=== PATIENT | male | born 1960 ===

== ENCOUNTER 2021-04-20 22:00 | Emergency (ER) | payer OTHER ==
[2021-04-20] MEDS ORDERED: fentaNYL 100 MCG/2 ML SDV IVPUSH ONE ×3 (22:08→23:00)
[2021-04-20] MEDS ORDERED: Ondansetron 4 MG/2 ML SDV IVPUSH ONE (22:08)
[2021-04-20] MEDS: Sodium Chloride 0.9% 10 ML Syringe FLUSH PRN ×2 (22:18→22:40)
[2021-04-20] MEDS ORDERED: Midazolam 1 MG/ML 2 ML SDV IVPUSH ONE ×2 (22:35→23:00)
[2021-04-20] MEDS ORDERED: fentaNYL 100 MCG/2 ML SDV ONE (22:59)
[2021-04-20] MEDS ORDERED: Midazolam 1 MG/ML 2 ML SDV ONE (23:02)
--- NOTE | 2021-04-20 23:30 | EDM.PDOC ---
ED HPI GENERAL MEDICAL PROBLEM - General Chief Complaint: Upper Extremity Injury/Pain Stated Complaint: Shoulder pain/dislocation Time Seen by Provider: 04/20/21 22:30 Source of Information: Reports: Patient History Limitations: Reports: No Limitations - History of Present Illness INITIAL COMMENTS - FREE TEXT/NARRATIVE: Patient tripped and fell while working at [employer]. Left shoulder slammed into a cart. Thinks it is dislocated. Denies hitting head or other injuries. 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 [No Known Home Meds] 04/20/21 [History] Past Medical History Musculoskeletal History: Reports: Other (See Below) Other Musculoskeletal History: dupatron contractures - Past Surgical History HEENT Surgical History: Reports: Oral Surgery Musculoskeletal Surgical History: Reports: Carpal Tunnel Social & Family History - Tobacco Use Tobacco Use Status *Q: Never Tobacco User Review of Systems - Review of Systems Review Of Systems: See Below Constitutional: Reports: No Symptoms Eyes: Reports: No Symptoms Ears: Reports: No Symptoms Nose: Reports: No Symptoms Mouth/Throat: Reports: No Symptoms Respiratory: Reports: No Symptoms Cardiovascular: Reports: No Symptoms GI/Abdominal: Reports: No Symptoms Genitourinary: Reports: No Symptoms Musculoskeletal: Reports: Shoulder Pain. Denies: Neck Pain, Arm Pain, Back Pain, Hand Pain, Leg Pain, Foot Pain Skin: Reports: No Symptoms Neurological: Reports: No Symptoms Psychiatric: Reports: No Symptoms ED EXAM, GENERAL - Physical Exam Exam: See Below Exam Limited By: Intoxication General Appearance: Alert, Severe Distress Eye Exam: Bilateral Eye: EOMI, PERRL Ears: Hearing Grossly Normal Nose: No: Nasal Deformity, Nasal Swelling, Nasal Drainage Throat/Mouth: Normal Lips, Normal Voice, No Airway Compromise Head: Atraumatic, Normocephalic Neck: Supple, Non-Tender, Full Range of Motion Respiratory/Chest: No Respiratory Distress, Lungs Clear Cardiovascular: Normal Peripheral Pulses, Regular Rate, Rhythm GI/Abdominal: Soft, Non-Tender (Male) Exam: Deferred Rectal (Males) Exam: Deferred Back Exam: No: CVA Tenderness (L), CVA Tenderness (R), Muscle Spasm, Paraspinal Tenderness, Vertebral Tenderness Extremities: Normal Capillary Refill, Other (left shoulder pain/deformity. NVI distally left arm/hand) Neurological: Alert, Oriented, Normal Cognition Psychiatric: Normal Affect, Normal Mood Skin Exam: Warm, Dry, Intact, Normal Color Course - Vital Signs Last Recorded V/S: Last Vital Signs Temp 36.4 C 04/20/21 22:05 Pulse 75 04/20/21 23:59 Resp 16 04/20/21 23:46 BP 112/64 04/20/21 23:59 Pulse Ox 100 04/20/21 23:46 - Orders/Labs/Meds Orders: Active Orders 24 hr Category Date Time Status Shoulder Comp Lt [CR] Stat Exams 04/20/21 22:04 Taken Shoulder Comp Lt [CR] Stat Exams 04/20/21 23:28 Taken DME for Discharge [COMM] Routine Oth 04/21/21 00:00 Ordered Peripheral IV Insertion Adult [OM.PC] Routine Oth 04/20/21 22:04 Ordered Meds: Medications Discontinued Medications Generic Name Dose Route Start Last Admin Trade Name Karlee PRN Reason Stop Dose Admin Fentanyl 100 mcg 04/20/21 22:08 04/20/21 22:13 Fentanyl 100 Mcg/2 Ml Sdv IVPUSH 04/20/21 22:09 100 mcg ONETIME ONE Administration Fentanyl 100 mcg 04/20/21 22:35 04/20/21 22:39 Fentanyl 100 Mcg/2 Ml Sdv IVPUSH 04/20/21 22:36 100 mcg ONETIME ONE Administration Fentanyl Confirm 04/20/21 22:59 04/20/21 23:15 Fentanyl 100 Mcg/2 Ml Sdv Administered 04/20/21 23:00 Not Given Dose 100 mcg .ROUTE .STK-MED ONE Fentanyl 50 mcg 04/20/21 23:00 04/20/21 23:00 Fentanyl 100 Mcg/2 Ml Sdv IVPUSH 04/20/21 23:01 50 mcg ONETIME ONE Administration Midazolam HCl 4 mg 04/20/21 22:35 04/20/21 22:41 Midazolam 1 Mg/Ml 2 Ml Sdv IVPUSH 04/20/21 22:36 4 mg ONETIME ONE Administration Midazolam HCl Confirm 04/20/21 23:02 04/20/21 23:15 Midazolam 1 Mg/Ml 2 Ml Sdv Administered 04/20/21 23:03 Not Given Dose 2 mg .ROUTE .STK-MED ONE Midazolam HCl 2 mg 04/20/21 23:00 04/20/21 23:00 Midazolam 1 Mg/Ml 2 Ml Sdv IVPUSH 04/20/21 23:01 2 mg ONETIME ONE Administration Ondansetron HCl 4 mg 04/20/21 22:08 04/20/21 22:19 Ondansetron 4 Mg/2 Ml Sdv IVPUSH 04/20/21 22:09 4 mg ONETIME ONE Administration Sodium Chloride 10 ml 04/20/21 22:04 04/20/21 22:40 Sodium Chloride 0.9% 10 Ml Syringe FLUSH 10 ml ASDIRECTED PRN Administration Keep Vein Open - Re-Assessments/Exams Free Text/Narrative Re-Assessment/Exam: 04/20/21 23:32 xray confirmed left shoulder dislocation and comminuted fracture of left lateral humeral head extending into the humeral neck. IV access obtained. Patient received a series of doses of Fentanyl and Versed for pain control and to try to relax him while attempting to reduce dislocation. Patient currently in xray to verify if successfully reduced. 04/20/21 23:46 Shoulder appears reduced. Call placed to [facility] at [facility] for follow up planning. 04/21/21 00:08 Discussed patient with from [facility]. Patient should go to [facility] walk in clinic tomorrow or following day. Prefab sling placed on patient for support/comfort/protection. Precautions reviewed. Sent home with Tramadol to go bottle. Departure - Departure Time of Disposition: 23:59 Disposition: Home, Self-Care 01 Condition: Good Clinical Impression: Anterior shoulder dislocation Qualifiers: Encounter type: initial encounter Laterality: left Qualified Code(s): S43.015A - Anterior dislocation of left humerus, initial encounter Fracture of humeral head, left, closed Qualifiers: Encounter type: initial encounter Qualified Code(s): S42.292A - Other displaced fracture of upper end of left humerus, initial encounter for closed fracture - Discharge Information Instructions: Shoulder Dislocation, How To Use a Sling, [id number], Tramadol tablets Referrals: PCP,None [Primary Care Provider] - Forms: ED Department Discharge Additional Instructions: Follow up at Ortho walk in clinic at [facility] tomorrow. Further planning and restrictions can be decided at that time. Wear the sling for protection and comfort. Take your pain pills 1 every 6 hours as needed. OK to take Tylenol with the Tramadol. Sepsis Event Note (ED) - Evaluation Sepsis Screening Result: No Definite Risk - My Orders Last 24 Hours: My Active Orders 04/20/21 22:04 Shoulder Comp Lt [CR] Stat Peripheral IV Insertion Adult [OM.PC] Routine 04/20/21 23:28 Shoulder Comp Lt [CR] Stat 04/21/21 00:00 DME for Discharge [COMM] Routine - Assessment/Plan Last 24 Hours: My Active Orders 04/20/21 22:04 Shoulder Comp Lt [CR] Stat Peripheral IV Insertion Adult [OM.PC] Routine 04/20/21 23:28 Shoulder Comp Lt [CR] Stat 04/21/21 00:00 DME for Discharge [COMM] Routine
== END 2021-04-21 00:10 | disposition home or self-care (01) ==
LOC: LL.ED 22:00
DX: S42.292A Other displaced fracture of upper end of left humerus, initial encounter for closed fracture (principal); S43.015A Anterior dislocation of left humerus, initial encounter; Z88.5 Allergy status to narcotic agent; Z88.2 Allergy status to sulfonamides; W01.0XXA Fall on same level from slipping, tripping and stumbling without subsequent striking against object, initial encounter; Y92.69 Other specified industrial and construction area as the place of occurrence of the external cause
CPT/HCPCS: 23650; 73030-LT; 96374; 99283; 99283-25; J2250; J2405; J3010